=== PATIENT | female | born 1960 | race African-American/Black ===

== ENCOUNTER 2021-08-08 11:23 | Emergency (ER) | payer MEDICAID ==
[~2021-08-08] VITALS: Ht 157.5 cm; Wt 55.0 kg
[2021-08-08] MEDS ORDERED: ACETAMINOPHEN 325MG TABLET PO STA (23:45)
[2021-08-08] MEDS ORDERED: ONDANSETRON 4MG ODT PO STA (23:45)
[2021-08-09 00:36] LABS: CHLORIDE 106 mEq/L (98-107)
[2021-08-09 00:37] LABS: BASOPHILS % 0.7 % (0.0-2.0); EOSINOPHILS % 1.1 % (0.0-5.0); HEMATOCRIT. 40.4 % (36.0-48.0); HEMOGLOBIN. 13.9 g/dL (12.0-16.0); LYMPHOCYTES % 38.1 % (20.0-50.0); MEAN CORPUSCULAR HEMOGLOBIN 32.2 pg (28.0-32.0); MEAN CORPUSCULAR VOLUME 93.7 fL (81.0-99.0); MEAN PLATELET VOLUME 7.4 fl (7.4-10.4); MONOCYTES % 8.7 % (2.0-8.0); NEUTROPHILS % 51.4 % (40.0-76.0); PLATELET 418 x1000/uL (130-400); RED BLOOD CELL COUNT 4.31 mill/uL (4.2-5.4); RED CELL DISTRIBUTION WIDTH 13.5 % (11.6-14.6)
[2021-08-09 01:18] LABS: CLARITY URINE CLEAR (CLEAR); COLOR URINE YELLOW (YELLOW); KETONES URINE NEGATIVE (NEGATIVE); LEUKOCYTE ESTERASE URINE 1+ (NEGATIVE); NITRITE URINE POSITIVE (NEGATIVE); OCCULT BLOOD URINE 1+ (NEGATIVE); PROTEIN URINE TRACE (NEGATIVE); SPECIFIC GRAVITY URINE 1.018 (1.005-1.030); UROBILINOGEN URINE 0.2 E.U./dL (0.2-1.0)
[2021-08-09] MEDS ORDERED: PHEN-815 MT (02:12)
[2021-08-09] MEDS ORDERED: OLOP5DRO14 EACHEYE (02:12)
[2021-08-09] MEDS ORDERED: NITR100C MT (02:12)
[2021-08-09] MEDS ORDERED: ONDA4TAB11 PO (02:12)
[2021-08-09 02:35] VITALS: BP 135/74
== END 2021-08-09 02:15 | disposition home or self-care (01) ==
LOC: ER 11:23
DX: N39.0 Urinary tract infection, site not specified (principal); H10.10 Acute atopic conjunctivitis, unspecified eye; R53.83 Other fatigue; R51.9 Headache, unspecified
CPT/HCPCS: 36415; 80048; 81003; 83690; 85025; 87077; 87086; 87186; 99283; Q0162

== ENCOUNTER 2024-08-27 10:46 | Emergency (ER) | payer MEDICAID, MEDICARE ==
[~2024-08-27] VITALS: Ht 154.9 cm; Wt 45.4 kg
[~2024-08-27 10:46] MED LIST: NITR100C MT; OLOP5DRO25 EACHEYE; ONDA-239 PO; PHEN-815 MT
[2024-08-27 10:57] VITALS: O2SAT 100
[2024-08-27 11:51] LABS: BASOPHILS % 0.8 % (0.0-2.0); EOSINOPHILS % 1.1 % (0.0-5.0); HEMATOCRIT. 43.6 % (36.0-48.0); HEMOGLOBIN. 14.7 g/dL (12.0-16.0); LYMPHOCYTES % 26.4 % (20.0-50.0); MEAN CORPUSCULAR HGB CONC 33.8 g/dL (31.0-37.0); MEAN CORPUSCULAR VOLUME 97.7 fL (81.0-99.0); MEAN PLATELET VOLUME 7.2 fl (7.4-10.4); MONOCYTES % 4.8 % (2.0-8.0); NEUTROPHILS % 66.9 % (40.0-76.0); PLATELET 299 x1000/uL (130-400); RED BLOOD CELL COUNT 4.46 mill/uL (4.2-5.4); RED CELL DISTRIBUTION WIDTH 13.2 % (11.6-14.6); WHITE BLOOD COUNT 6.4 x1000/uL (4.5-11.0)
[2024-08-27 11:54] LABS: CHLORIDE 106 mEq/L (98-107); POTASSIUM 3.2 mEq/L (3.5-5.1); SODIUM 142 mEq/L (136-145)
[2024-08-27 11:55] LABS: CARBON DIOXIDE 26 mEq/L (21-32)
[2024-08-27 12:00] LABS: CREATININE 0.8 mg/dL (0.6-1.0); GLUCOSE 103 mg/dL (70-105); UREA NITROGEN BLOOD 12 mg/dL (9-23)
[2024-08-27 12:02] LABS: ALANINE AMINOTRANSFERASE 14 IU/L (10-49); ALBUMIN 4.6 g/dL (3.2-4.8); ASPARTATE AMINOTRANSFERASE 24 IU/L (<34); BILIRUBIN DIRECT 0.2 mg/dL (<=3.0); BILIRUBIN TOTAL 0.6 mg/dL (0.1-1.0); PROTEIN TOTAL 7.4 g/dL (6.0-8.3); TROPONIN I HIGH SENSITIVITY 7 ng/L (3.0-34)
[2024-08-27 12:53] LABS: CLARITY URINE CLEAR (CLEAR); COLOR URINE DARK YELLOW (YELLOW); GLUCOSE URINE NEGATIVE (NEGATIVE); KETONES URINE TRACE (NEGATIVE); LEUKOCYTE ESTERASE URINE NEGATIVE (NEGATIVE); NITRITE URINE NEGATIVE (NEGATIVE); OCCULT BLOOD URINE 1+ (NEGATIVE); PH URINE 5.5 (4.5-8.0); PROTEIN URINE 2+ (NEGATIVE); SPECIFIC GRAVITY URINE 1.024 (1.005-1.030)
[2024-08-27 13:24] LABS: MUCUS URINE 1+ /lpf (< = 2+); SQUAMOUS EPITHELIAL CELL URINE 1+ /lpf (RARE/1+)
[2024-08-27 13:25] LABS: BACTERIA URINE 1+; WBC URINE 0-2 /hpf (0-2)
[2024-08-27] MEDS ORDERED: MECLIZINE 25MG TABLET PO ONE (17:15)
[2024-08-27] MEDS ORDERED: ONDA4TAB50 MT (17:34)
[2024-08-27] MEDS ORDERED: MECL-299 MT (17:34)
[2024-08-27] MEDS ORDERED: LORA10TA7 MT (17:34)
[2024-08-27] MEDS ORDERED: ALBU90AE INH (18:07)
[2024-08-27] MEDS: ONDANSETRON 4MG ODT PO NR (19:33)
[2024-08-27] MEDS: MECLIZINE 25MG TABLET PO NR (19:33)
[2024-08-27] MEDS: POTASSIUM CHLORIDE 20MEQ TABLET SR PO NR (19:33)
[2024-08-27 19:35] VITALS: BP 137/65; PULSE 101; RESP 17; TEMP 36.66960; O2SAT 100
== END 2024-08-27 19:36 | disposition home or self-care (01) ==
LOC: ER 11:00
DX: H10.13 Acute atopic conjunctivitis, bilateral (principal); J06.9 Acute upper respiratory infection, unspecified; R19.7 Diarrhea, unspecified; R42 Dizziness and giddiness; J44.9 Chronic obstructive pulmonary disease, unspecified; Z79.899 Other long term (current) drug therapy
CPT/HCPCS: 36415; 71045; 80048; 80076; 81003; 83880; 84484; 85025; 93005; 99285